=== PATIENT | male | born 1955 | race Caucasian/White ===

== ENCOUNTER 2018-03-03 19:14 | Outpatient (CLI) | payer BC ==
[~2018-03-03 19:14] MED LIST: AMLO2.5T2 PO; ASPI-611 PO; ATOR10TA87 PO; DOCU-28 PO; EFF25T PO; HYDR-3972 PO; LOSA25TA96 PO
[2018-03-04 00:01] LABS: BASOPHILS % (AUTO) 0.4 % (0-1); EOSINOPHILS # (AUTO) 0.3 X10'3 (0-0.9); EOSINOPHILS % (AUTO) 3.5 % (0-6); HEMATOCRIT 44.1 % (42.0-52.0); HEMOGLOBIN 14.1 g/dl (14.0-17.9); LYMPHOCYTES # (AUTO) 2.8 X10'3 (1.1-4.8); LYMPHOCYTES % (AUTO) 30.1 % (21-51); MEAN CORPUSCULAR HEMOGLOBIN 27.3 PG (27.0-31.0); MEAN CORPUSCULAR HGB CONC 32.1 % (33.0-36.5); MEAN PLATELET VOLUME 7.6 FL (7.4-10.4); MONOCYTES # (AUTO) 0.7 X10'3 (0-0.9); MONOCYTES % (AUTO) 7.8 % (2-12); NEUTROPHILS # (AUTO) 5.4 X10'3 (1.8-7.7); NEUTROPHILS % (AUTO) 58.2 % (42-75); PLATELET COUNT 424 X10'3 (140-440); RED BLOOD COUNT 5.19 X10'6 (4.70-6.10); RED CELL DISTRIBUTION WIDTH 15.7 % (11.5-14.5); WHITE BLOOD COUNT 9.3 X10'3 (4.5-11.0)
== END 2018-03-03 23:59 | disposition home or self-care (01) ==
LOC: LAB SPEC 19:14
PROVIDERS: ATTEND Internal Medicine Infectious Disease
DX: D72.829 Elevated white blood cell count, unspecified (principal); I10 Essential (primary) hypertension; Z79.82 Long term (current) use of aspirin
CPT/HCPCS: 36415; 85025; 85651; 86140